=== PATIENT | male | born 1955 | race African-American/Black ===

== ENCOUNTER 2020-02-11 21:34 | Emergency (ER) | payer OTHER ==
[~2020-02-11] VITALS: Ht 190.5 cm; Wt 124.7 kg
[2020-02-11 21:50] VITALS: BP 159/99; Ht 190.5 cm; Wt 124.7 kg
== END 2020-02-12 01:11 | disposition home or self-care (01) ==
LOC: ED 21:34
DX: J06.9 Acute upper respiratory infection, unspecified (principal); I10 Essential (primary) hypertension
CPT/HCPCS: 87804

== ENCOUNTER 2020-02-20 20:32 | Inpatient (IN) | payer OTHER ==
[~2020-02-20] VITALS: Ht 190.5 cm; Wt 126.0 kg
[2020-02-20 21:36] LABS: BASOPHIL % 0.4 % (0-2); PLATELET COUNT 231 x10^3mcL (130-400); RED CELL DISTRIBUTION WIDTH 13.6 % (11.5-14.5)
[2020-02-20 21:43] LABS: CALCIUM 8.4 mg/dL (8.5-10.1); CHLORIDE SERUM 98 mmol/L (98-107); CREATININE SERUM 1.2 mg/dL (0.7-1.3); GFR1 > 60 mL/min; GLUCOSE SERUM 107 mg/dL (74-106); POTASSIUM SERUM 3.9 mmol/L (3.5-5.1); SODIUM SERUM 136 mmol/L (136-145)
[2020-02-20 21:48] LABS: ALKALINE PHOSPHATASE 70 U/L (46-116); ALT/SGPT 32 U/L (16-63); AST/SGOT 35 U/L (15-37); BILIRUBIN TOTAL 0.8 mg/dL (0.20-1.00); TOTAL PROTEIN, SERUM 8.2 g/dL (6.4-8.2)
[2020-02-20 21:49] LABS: ALBUMIN 3.1 g/dL (3.4-5.0)
[2020-02-20] MEDS ORDERED: MICROZIDE12.5 MG PO (22:00)
[2020-02-20] MEDS ORDERED: TES100 (22:00)
[2020-02-20 23:23] VITALS: BP 154/80
[2020-02-20 23:30] VITALS: BP 154/80
[2020-02-21 01:49] LABS: UA SPECIFIC GRAVITY >=1.030 (1.005-1.035); microscopic required? YES; urine erythrocyte NEGATIVE (NEGATIVE)
[2020-02-21 05:08] VITALS: BP 120/75
[2020-02-21 06:30] LABS: BASOPHIL % 0.5 % (0-2); PLATELET COUNT 238 x10^3mcL (130-400)
[2020-02-21 06:54] LABS: ALKALINE PHOSPHATASE 62 U/L (46-116); ALT/SGPT 30 U/L (16-63); AST/SGOT 36 U/L (15-37); BILIRUBIN TOTAL 0.6 mg/dL (0.20-1.00); CALCIUM 8.1 mg/dL (8.5-10.1); CARBON DIOXIDE 29.7 mmol/L (21-32); CHLORIDE SERUM 100 mmol/L (98-107); GFR1 > 60 mL/min; GLUCOSE SERUM 117 mg/dL (74-106); POTASSIUM SERUM 3.9 mmol/L (3.5-5.1); SODIUM SERUM 137 mmol/L (136-145); TOTAL PROTEIN, SERUM 7.5 g/dL (6.4-8.2)
[2020-02-21 07:18] LABS: ALBUMIN 2.8 g/dL (3.4-5.0)
[2020-02-21 08:30] VITALS: BP 128/70
[2020-02-21 12:45] VITALS: BP 120/84
[2020-02-21 16:40] VITALS: BP 144/84
[2020-02-21 20:00] VITALS: BP 151/86
[2020-02-22] VITALS (9 sets, daily range): BP systolic 107–211; BP diastolic 58–124
[2020-02-22 07:38] LABS: BASOPHIL % 0.4 % (0-2); PLATELET COUNT 249 x10^3mcL (130-400); RED CELL DISTRIBUTION WIDTH 14.3 % (11.5-14.5)
[2020-02-23] VITALS (23 sets, daily range): BP systolic 70–139; BP diastolic 40–89
[2020-02-23 00:56] LABS: CALCIUM 8.9 mg/dL (8.5-10.1); CARBON DIOXIDE 24.8 mmol/L (21-32); CHLORIDE SERUM 99 mmol/L (98-107); GFR1 > 60 mL/min; GLUCOSE SERUM 79 mg/dL (74-106); MAGNESIUM 2.5 mg/dL (1.8-2.4); POTASSIUM SERUM 4.6 mmol/L (3.5-5.1); SODIUM SERUM 135 mmol/L (136-145)
[2020-02-23 00:57] LABS: LACTIC DEHYDROGENASE (LDH) 701 U/L (100-190)
[2020-02-23 05:27] LABS: BASOPHIL % 0.1 % (0-2); PLATELET COUNT 268 x10^3mcL (130-400); RED CELL DISTRIBUTION WIDTH 14.2 % (11.5-14.5)
[2020-02-23 05:38] LABS: BILIRUBIN TOTAL 1.9 mg/dL (0.20-1.00); CALCIUM 8.1 mg/dL (8.5-10.1); CARBON DIOXIDE 25.3 mmol/L (21-32); CREATININE SERUM 1.9 mg/dL (0.7-1.3); MAGNESIUM 2.4 mg/dL (1.8-2.4); TOTAL PROTEIN, SERUM 7.3 g/dL (6.4-8.2)
[2020-02-23 05:41] LABS: ALBUMIN 2.4 g/dL (3.4-5.0)
[2020-02-24] VITALS (16 sets, daily range): BP systolic 91–165; BP diastolic 46–81; Ht 190.5 cm; Wt 126.0 kg
[2020-02-24 04:47] LABS: PLATELET COUNT 297 x10^3mcL (130-400); RED CELL DISTRIBUTION WIDTH 14.2 % (11.5-14.5)
[2020-02-24 04:50] LABS: BASOPHIL % 0 % (0-2)
[2020-02-24 05:02] LABS: BILIRUBIN TOTAL 1.95 mg/dL (0.20-1.00); CARBON DIOXIDE 24.3 mmol/L (21-32); CREATININE SERUM 3.5 mg/dL (0.7-1.3); MAGNESIUM 2.4 mg/dL (1.8-2.4); POTASSIUM SERUM 4.7 mmol/L (3.5-5.1); TOTAL PROTEIN, SERUM 6.7 g/dL (6.4-8.2)
[2020-02-24 05:03] LABS: ALBUMIN 2.1 g/dL (3.4-5.0)
[2020-02-25] VITALS (19 sets, daily range): BP systolic 73–132; BP diastolic 34–76
[2020-02-25 11:09] LABS: BILIRUBIN TOTAL 2.6 mg/dL (0.20-1.00); CALCIUM 8.3 mg/dL (8.5-10.1); CARBON DIOXIDE 24.1 mmol/L (21-32); MAGNESIUM 2.8 mg/dL (1.8-2.4); PHOSPHOROUS 8.9 mg/dL (2.5-4.9); POTASSIUM SERUM 5.2 mmol/L (3.5-5.1); TOTAL PROTEIN, SERUM 7.1 g/dL (6.4-8.2)
[2020-02-25 11:13] LABS: CREATININE SERUM 6.6 mg/dL (0.7-1.3)
[2020-02-25 13:32] LABS: PLATELET COUNT 342 x10^3mcL (130-400); RED CELL DISTRIBUTION WIDTH 14.7 % (11.5-14.5)
[2020-02-25 13:52] LABS: BAND NEUTROPHIL 0 % (0-10); BASOPHIL 0 % (0-2); MONOCYTE 10 % (0-7); SEGMENTED NEUTROPHILS 87 % (37-75)
[2020-02-25 13:53] LABS: rbc morphology (normal/abnorm) ABNORMAL (NORMAL)
[2020-02-26] VITALS (19 sets, daily range): BP systolic 92–151; BP diastolic 47–80
[2020-02-26 05:10] LABS: BILIRUBIN TOTAL 3.16 mg/dL (0.20-1.00); CALCIUM 7.7 mg/dL (8.5-10.1); CARBON DIOXIDE 22.8 mmol/L (21-32); MAGNESIUM 2.5 mg/dL (1.8-2.4); PHOSPHOROUS 7.1 mg/dL (2.5-4.9); POTASSIUM SERUM 4.7 mmol/L (3.5-5.1); TOTAL PROTEIN, SERUM 6.7 g/dL (6.4-8.2)
[2020-02-26 05:14] LABS: ALBUMIN 2.1 g/dL (3.4-5.0)
[2020-02-26 05:15] LABS: CREATININE SERUM 6.7 mg/dL (0.7-1.3)
[2020-02-26 05:45] LABS: PLATELET COUNT 315 x10^3mcL (130-400)
[2020-02-26 05:49] LABS: BASOPHIL % 0 % (0-2); RED CELL DISTRIBUTION WIDTH 14.8 % (11.5-14.5)
[2020-02-27] VITALS (17 sets, daily range): BP systolic 80–123; BP diastolic 34–67
[2020-02-27 04:38] LABS: PLATELET COUNT 349 x10^3mcL (130-400)
[2020-02-27 04:44] LABS: RED CELL DISTRIBUTION WIDTH 15.7 % (11.5-14.5)
[2020-02-27 04:52] LABS: BAND NEUTROPHIL 2 % (0-10); MONOCYTE 4 % (0-7); SEGMENTED NEUTROPHILS 90 % (37-75)
[2020-02-27 04:57] LABS: rbc morphology (normal/abnorm) ABNORMAL (NORMAL)
[2020-02-27 04:58] LABS: PLATELET MORPHOLOGY PLATELETS NORMAL; acanthocyte (spur cell) 2+
[2020-02-27 05:00] LABS: CALCIUM 8.6 mg/dL (8.5-10.1); CARBON DIOXIDE 24.6 mmol/L (21-32); TOTAL PROTEIN, SERUM 7.1 g/dL (6.4-8.2)
[2020-02-27 05:01] LABS: ALBUMIN 1.9 g/dL (3.4-5.0)
[2020-02-27 05:02] LABS: CREATININE SERUM 8.7 mg/dL (0.7-1.3); POTASSIUM SERUM 6.3 mmol/L (3.5-5.1)
== END 2020-02-27 21:57 | disposition expired | DRG 870 ==
LOC: ED 20:32 → IC 22:00 → DU 22:00 → IC 02-22 19:30 → DU 02-22 20:04 → IC 02-22 20:08
PROVIDERS: Emergency Medicine; Internal Medicine Pulmonary Disease; ADMIT Specialist
PROC: 5A1955Z Respiratory Ventilation, Greater than 96 Consecutive Hours (ICD-10-PCS; principal; 2020-02-22)
PROC: 0BH17EZ Insertion of Endotracheal Airway into Trachea, Via Natural or Artificial Opening (ICD-10-PCS; 2020-02-22)
PROC: 02HV33Z Insertion of Infusion Device into Superior Vena Cava, Percutaneous Approach (ICD-10-PCS; 2020-02-25)
PROC: B548ZZA Ultrasonography of Superior Vena Cava, Guidance (ICD-10-PCS; 2020-02-25)
PROC: 5A1D70Z Performance of Urinary Filtration, Intermittent, Less than 6 Hours Per Day (ICD-10-PCS; 2020-02-25)
PROC: 06HM33Z Insertion of Infusion Device into Right Femoral Vein, Percutaneous Approach (ICD-10-PCS; 2020-02-27)
PROC: 5A1D70Z Performance of Urinary Filtration, Intermittent, Less than 6 Hours Per Day (ICD-10-PCS; 2020-02-27)
DX: A41.89 Other specified sepsis (principal); J12.89 Other viral pneumonia; J96.01 Acute respiratory failure with hypoxia; J96.02 Acute respiratory failure with hypercapnia; N17.0 Acute kidney failure with tubular necrosis; B97.21 SARS-associated coronavirus as the cause of diseases classified elsewhere; R65.20 Severe sepsis without septic shock; E87.5 Hyperkalemia; I10 Essential (primary) hypertension; Z68.34 Body mass index [BMI] 34.0-34.9, adult; Z87.891 Personal history of nicotine dependence; Z66 Do not resuscitate
CPT/HCPCS: 36556; 36600; 83880; 87804; A4628; G0378; J0456; J0696; J1644; J1650; J1940; J1956; J2250; J2270; J2405; J2704; J2920; J3010; J3370; J3490; J3535; J7030; J7040; J7050; J7060; P9047; Q0092; U0002